=== PATIENT | male | born 1990 | race African-American/Black ===

== ENCOUNTER 2022-10-29 15:17 | Inpatient (IN) | payer OTHER ==
[2022-10-29 15:38] VITALS: BMI 20.3
[2022-10-29] MEDS ORDERED: NALOXONE HCL (KLOXXADO) 8 MG SPRAY NS PRN (17:03)
[2022-10-29] MEDS ORDERED: BISMUTH SUBSALICYLATE 524 MG/30 ML PO PRN (17:03)
[2022-10-29] MEDS ORDERED: IBUPROFEN 600 MG TABLET (FP) PO PRN (17:03)
[2022-10-29] MEDS ORDERED: DICYCLOMINE HCL 10 MG CAPSULE PO PRN (17:03)
[2022-10-29] MEDS ORDERED: MAGNESIUM HYDROX 2400MG/30ML ORAL SUSPENSION 30 ML CUP PO PRN (17:03)
[2022-10-29] MEDS ORDERED: ACETAMINOPHEN 325 MG TABLET (FP) PO PRN (17:03)
[2022-10-29] MEDS ORDERED: LOPERAMIDE HCL 2 MG CAPSULE PO PRN (17:03)
[2022-10-29] MEDS ORDERED: NICOTINE 10 MG CARTRIDGE (INHALER) IH PRN (17:03)
[2022-10-29] MEDS ORDERED: BENZOCAINE/MENTHOL (CHLORASEPTIC ) LOZENGE MM PRN (17:03)
[2022-10-29] MEDS ORDERED: POLYETHYLENE GLYCOL (HEALTHYLAX) 3350 17 GM PACKET PO PRN (17:03)
[2022-10-29] MEDS ORDERED: BENZONATATE 200 MG CAPSULE PO PRN (17:03)
[2022-10-29] MEDS ORDERED: guaiFENesin 600 MG TABLET.ER (FP) PO PRN (17:03)
[2022-10-29] MEDS ORDERED: ONDANSETRON *ODT* 4 MG TABLET SL PRN (17:03)
[2022-10-29] MEDS ORDERED: NALOXONE HCL 0.4 MG/ML VIAL IM PRN (17:03)
[2022-10-29] MEDS ORDERED: IBUPROFEN 400 MG TABLET (FP) PO PRN (17:03)
[2022-10-29] MEDS ORDERED: MAG HYDROX/AL HYDROX/SIMETH 30 ML UNIT-DOSE CUP PO PRN (17:03)
[2022-10-29] MEDS: METHOCARBAMOL 500 MG TABLET PO PRN (22:22)
[2022-10-29] MEDS: hydrOXYzine PAMOATE 25 MG CAPSULE (FP) PO PRN (22:22)
[2022-10-29] MEDS: THIAMINE HCL 100 MG TABLET (FP) PO SCH (22:22)
[2022-10-29] MEDS: MELATONIN 5 MG TABLETS PO SCH (22:23)
[2022-10-30 10:40] LABS: HEMATOCRIT 36.4 % (35.4-49); HEMOGLOBIN 11.9 GM/dL (11.7-16.9); MCH 27.4 pg (25.7-33.7); MCHC 32.7 g/dl (32.0-35.9); MEAN CELL VOLUME 83.8 fl (80-96); MEAN PLT VOLUME 8.6 fl (7.5-11.1); PLATELET COUNT 310 10^3/uL (134-434); RBC 4.35 M/mm3 (4.00-5.60); RDW 14.5 % (11.9-15.9); WHITE BLOOD COUNT 5.7 K/mm3 (4.0-10.0)
[2022-10-30 10:43] LABS: CALCIUM 8.8 mg/dL (8.5-10.1)
[2022-10-30 10:44] LABS: ALBUMIN 2.9 g/dl (3.4-5.0); BLOOD UREA NITROGEN 14.8 mg/dL (7-18)
[2022-10-30 10:47] LABS: CREATININE 0.8 mg/dL (0.55-1.3)
[2022-10-30 10:48] LABS: BILIRUBIN,TOTAL 0.3 mg/dL (0.2-1)
[2022-10-30] MEDS ORDERED: cloNIDine HCL 0.1 MG TABLET PO PRN (10:48)
[2022-10-30] MEDS ORDERED: methaDONE HCL 10 MG TABLET (FOR DETOX USE ONLY) PO ONE (10:48)
[2022-10-30 10:49] LABS: TOT PROT 6.8 g/dl (6.4-8.2)
[2022-10-30] MEDS: METHOCARBAMOL 500 MG TABLET PO PRN ×2 (11:11→22:39)
[2022-10-30] MEDS: diazePAM 5 MG TABLET PO PRN ×2 (11:11→22:39)
[2022-10-30] MEDS: PRENATAL VITAMINS W/ FOLIC ACID TABLET (FP) PO SCH (11:11)
[2022-10-30] MEDS: hydrOXYzine PAMOATE 25 MG CAPSULE (FP) PO PRN (22:39)
[2022-10-30] MEDS: MELATONIN 5 MG TABLETS PO SCH (22:39)
[2022-10-30] MEDS: THIAMINE HCL 100 MG TABLET (FP) PO SCH (22:39)
[2022-10-31] MEDS: METHOCARBAMOL 500 MG TABLET PO PRN (09:54)
[2022-10-31] MEDS: PRENATAL VITAMINS W/ FOLIC ACID TABLET (FP) PO SCH (09:54)
[2022-10-31] MEDS: diazePAM 5 MG TABLET PO PRN ×3 (09:56→21:42)
[2022-10-31] MEDS: MELATONIN 5 MG TABLETS PO SCH (21:41)
[2022-10-31] MEDS: THIAMINE HCL 100 MG TABLET (FP) PO SCH (21:42)
[2022-11-01] MEDS: diazePAM 5 MG TABLET PO PRN (07:32)
[2022-11-01] MEDS ORDERED: methaDONE HCL 10 MG TABLET (FOR DETOX USE ONLY) PO ONE (10:00)
[2022-11-01] MEDS: PRENATAL VITAMINS W/ FOLIC ACID TABLET (FP) PO SCH (10:26)
[2022-11-01 14:15] VITALS: BP 112/71; PULSE 74; RESP 18; TEMP 98.7
[2022-11-03] MEDS ORDERED: methaDONE HCL 10 MG TABLET (FOR DETOX USE ONLY) PO ONE (10:00)
== END 2022-11-01 13:25 | disposition home or self-care (01) | DRG 773 ==
LOC: YASAS 15:17 → Y6N 16:40
PROVIDERS: ADMIT Allergy & Immunology; ATTEND Surgery
PROC: HZ2ZZZZ Detoxification Services for Substance Abuse Treatment (ICD-10-PCS; principal; 2022-10-29)
DX: F11.23 Opioid dependence with withdrawal (principal); F13.20 Sedative, hypnotic or anxiolytic dependence, uncomplicated; F14.10 Cocaine abuse, uncomplicated; F17.210 Nicotine dependence, cigarettes, uncomplicated; Z28.310 Unvaccinated for COVID-19; Z28.9 Immunization not carried out for unspecified reason
CPT/HCPCS: 36415; 80053; 85027; 86780; 87811; C9803-CS; U0003; U0005

== ENCOUNTER 2024-02-22 21:32 | Inpatient (IN) | payer OTHER ==
[2024-02-22 23:58] VITALS: BMI 22.2
[2024-02-23] MEDS ORDERED: BENZOCAINE/MENTHOL (CHLORASEPTIC ) LOZENGE MM PRN (02:20)
[2024-02-23] MEDS ORDERED: MAG HYDROX/AL HYDROX/SIMETH 30 ML UNIT-DOSE CUP PO PRN (02:20)
[2024-02-23] MEDS ORDERED: BISMUTH SUBSALICYLATE 524 MG/30 ML PO PRN (02:20)
[2024-02-23] MEDS ORDERED: BENZONATATE 200 MG CAPSULE PO PRN (02:20)
[2024-02-23] MEDS ORDERED: NALOXONE (NARCAN) HCL 4 MG/0.1 ML SPRAY NS PRN (02:20)
[2024-02-23] MEDS ORDERED: guaiFENesin 600 MG TABLET.ER (FP) PO PRN (02:20)
[2024-02-23] MEDS ORDERED: ACETAMINOPHEN 325 MG TABLET (FP) PO PRN (02:20)
[2024-02-23] MEDS ORDERED: NALOXONE HCL 0.4 MG/ML VIAL IM PRN (02:20)
[2024-02-23] MEDS ORDERED: MAGNESIUM HYDROX 2400MG/30ML ORAL SUSPENSION 30 ML CUP PO PRN (02:20)
[2024-02-23] MEDS ORDERED: IBUPROFEN 600 MG TABLET (FP) PO PRN (02:20)
[2024-02-23] MEDS ORDERED: POLYETHYLENE GLYCOL (HEALTHYLAX) 3350 17 GM PACKET PO PRN (02:20)
[2024-02-23] MEDS ORDERED: IBUPROFEN 400 MG TABLET (FP) PO PRN (02:20)
[2024-02-23] MEDS ORDERED: ONDANSETRON *ODT* 4 MG TABLET SL PRN (02:20)
[2024-02-23] MEDS ORDERED: LOPERAMIDE HCL 2 MG CAPSULE PO PRN (02:20)
[2024-02-23] MEDS ORDERED: DICYCLOMINE HCL 10 MG CAPSULE PO PRN (02:20)
[2024-02-23] MEDS ORDERED: NICOTINE POLACRILEX 2 MG GUM BUC PRN (02:20)
[2024-02-23] MEDS ORDERED: cloNIDine HCL 0.1 MG TABLET PO PRN (02:22)
[2024-02-23] MEDS ORDERED: methaDONE HCL 10 MG TABLET (FOR DETOX USE ONLY) ONE (03:16)
[2024-02-23] MEDS: methaDONE HCL 10 MG TABLET (FOR DETOX USE ONLY) PO ONE (03:20)
[2024-02-23] MEDS: PRENATAL VITAMINS W/ FOLIC ACID TABLET (FP) PO SCH (10:09)
[2024-02-23] MEDS: NICOTINE 21 MG/24 HOURS TOPICAL PATCH TD SCH (10:09)
[2024-02-23] MEDS: diazePAM 5 MG TABLET PO PRN (22:31)
[2024-02-23] MEDS: METHOCARBAMOL 500 MG TABLET PO PRN (22:31)
[2024-02-23] MEDS: MELATONIN 5 MG TABLETS PO SCH (22:32)
[2024-02-23] MEDS: THIAMINE 100 MG TABLET PO SCH (22:32)
[2024-02-24 10:27] LABS: HEMATOCRIT 35.6 % (35.4-49); HEMOGLOBIN 11.8 GM/dL (11.7-16.9); MCH 28.1 pg (25.7-33.7); MCHC 33.1 g/dl (32.0-35.9); MEAN CELL VOLUME 84.7 fl (80-96); MEAN PLT VOLUME 8.9 fl (7.5-11.1); PLATELET COUNT 265 10^3/uL (134-434); RBC 4.21 M/mm3 (4.00-5.60); RDW 14.2 % (11.9-15.9); WHITE BLOOD COUNT 4.6 K/mm3 (4.0-10.0)
[2024-02-24 10:47] LABS: POTASSIUM 3.6 mmol/L (3.5-5.1)
[2024-02-24 11:03] LABS: BLOOD UREA NITROGEN 13.9 mg/dL (7-18); CALCIUM 8.7 mg/dL (8.5-10.1)
[2024-02-24 11:04] LABS: ALBUMIN 3.3 g/dl (3.4-5.0)
[2024-02-24 11:07] LABS: CREATININE 0.8 mg/dL (0.55-1.3)
[2024-02-24 11:08] LABS: BILIRUBIN,TOTAL 0.2 mg/dL (0.2-1); TOT PROT 6.4 g/dl (6.4-8.2)
[2024-02-25 07:06] VITALS: RESP 16
[2024-02-25] MEDS: methaDONE HCL 10 MG TABLET (FOR DETOX USE ONLY) PO ONE (09:57)
[2024-02-25] MEDS: hydrOXYzine PAMOATE 25 MG CAPSULE (FP) PO PRN (09:57)
[2024-02-25 13:20] VITALS: BP 114/64; PULSE 73; TEMP 97.6
[2024-02-27] MEDS ORDERED: methaDONE HCL 10 MG TABLET (FOR DETOX USE ONLY) PO ONE (10:00)
== END 2024-02-25 14:20 | disposition left against medical advice (07) | DRG 770 ==
LOC: YASAS 21:32 → Y6N 02-23 03:07
PROVIDERS: ADMIT Allergy & Immunology; ATTEND Surgery
PROC: HZ2ZZZZ Detoxification Services for Substance Abuse Treatment (ICD-10-PCS; principal; 2024-02-23)
DX: F11.23 Opioid dependence with withdrawal (principal); F14.20 Cocaine dependence, uncomplicated; F17.210 Nicotine dependence, cigarettes, uncomplicated; M41.9 Scoliosis, unspecified; Z56.0 Unemployment, unspecified; Z59.00 Homelessness unspecified
CPT/HCPCS: 36415; 80053; 80305; 80307; 85027; 86780; 93005; 93010